=== PATIENT | female | born 1980 | race Caucasian/White ===

== ENCOUNTER → 2020-10-15 | Outpatient (CLI) | payer OTHER ==
[~2020-10-15] MED LIST: CYCL-707 PO; GABA-282 PO; GABA-845 PO; IBUP-1022 PO; IBUPOTC PO; OXYC1TAB23 PO; OXYC5CAP28 PO; PERC5TAB12 PO; SOMA350T PO; TRAM50TA2 PO; [UNRECOGNIZED DRUG - CODE] PO
== END ==
LOC: M LABSMTC 13:48
PROVIDERS: ATTEND Anesthesiology
DX: Z01.812 Encounter for preprocedural laboratory examination (principal)

== ENCOUNTER 2020-10-19 10:14 | Day surgery (SDC) | payer BC ==
[~2020-10-19] VITALS: Ht 177.8 cm; Wt 108.9 kg
[~2020-10-19 10:14] MED LIST changes: +CelecoXIB 400 MG CAP PO ONE; -GABA-845 PO; +GABAPENTIN 400MG CAP PO ONE; +LR 1,000 ML IV ONE; -OXYC1TAB23 PO; -PERC5TAB12 PO; +PERCOCET 5MG/325MG TAB PO ONE; +ceFAZolin SOD 2 GM in IV 1 EA IV ONE
--- OUTSIDE RECORDS SUMMARY | 2020-10-19 10:20 | CCD | Continuity of Care Document ---
Author Author Lacey COHEN PA Organization Unknown Address [address] [place] [address], [address] [address] Phone [phone] Care Team Providers Care School Business Administrator Name Role Phone Remasravanthi Sid ROCK AUTM [phone] Problems Description No Information Available Social History Type Date Description Comments Sex Unknown ETOH Use Occasionally consumes alcohol Tobacco Use Start: Unknown Denies Smoking Allergies, Adverse Reactions, Alerts Description No Known Drug Allergies Medications Active Medications SIG Qnty Indications Ordering Provide r Date Ibuprofen 600mg Tablets 1 tab by mouth three times a day 90tabs M51.26 Erwin Soto MD 10/07/2020 Medrol 4mg TBPK use as dir ected on pkg Unknown Ibuprofen 200 200mg Tablets 1-2 tabs by mouth four times a day Unknown 0 Tylenol 325mg Tablets 2 tabs every 4 hours as needed pain or fever Unknown 00 Tizanidine HCL 4mg Capsules 1 by mouth three times a day Unknown Immunizations Description No Information Available Vital Signs Date Vital Result Comment 10/07/2020 12:52pm Body Temperature 96.9 F Height 71 inches 5'11" Weight 240.00 lb BMI (Body Mass Index) 33.5 kg/m2 Results Description No Information Available Procedures Date Code Description Status 10/07/2020 98418 X-Ray Spine Lumbosacral Complete W/Oblique 4 Views Completed Medical Devices Description No Information Available Encounters Description No Information Available Assessments Date Code Description Provider 10/07/2020 M54.5 Low back pain PRANAV Spicer 10/07/2020 M51.26 Other intervertebral disc displa cement, lumbar region PRANAV Spicer 10/07/2020 M51.36 Other intervertebral disc degene ration, lumbar region PRANAV Spicer Plan of Treatment 10/07/2020 - PRANAV Spicer* M54.5 Low back pain * M51.26 Other intervertebral disc displacement, lumbar region* New Medication: * Ibuprofen 600 mg - 1 tab by mouth three times a day * Follow up:* after with IID for *STAT* L-spine mri results please. * M51.36 Other intervertebral disc degeneration, lumbar region Functional Status Description No Information Available Mental Status Description No Information Available Referrals Description No Information Available
--- OUTSIDE RECORDS SUMMARY | 2020-10-19 10:20 | CCD | Continuity of Care Document ---
Author Author Lacey KAPOOR BOTTLING ROOM WORKER Organization Unknown Address [address] [place] [address] [place] [address] Phone [phone] Problems Description No Information Available Social History Type Date Description Comments Sex Unknown ETOH Use Occasionally consumes alcohol Tobacco Use Start: Unknown The patient has never vaped Tobacco Use Start: Unknown Patient has never smoked Allergies, Adverse Reactions, Alerts Description No Known Drug Allergies Medications Active Medications SIG Qnty Indications Ordering Provide r Date Medrol 4mg TBPK one dose pack as directed for 6 days 21units M54.41 Ramirez Son JR., M.D. 11/2020 Tizanidine HCL 4mg Tablets take 1 tab q6-8 hours as needed 14tabs M54.41 Ramirez Son JR., M.D. 11/2020 Ibuprofen 200 last dose of 600mg at about 6:00am today Unknown Medications Administered in Office Medication SIG Qnty Indications Ordering Provider Date Methylprednisolone Sodium Succinate To 1 25 MG Injection Lulú Kapoor NP 10/03 Immunizations Description No Information Available Vital Signs Date Vital Result Comment 10/03/2020 11:04am BP Systolic 152 mmHg BP Diastolic 100 mmHg Heart Rate 108 /min Respiratory Rate 20 /min O2 % BldC Oximetry 98 % Body Temperature 97.8 F Weight 240.00 lb Height 71 inches 5'11" BMI (Body Mass Index) 33.5 kg/m2 Pain Level 7 Results Description No Information Available Procedures Date Code Description Status 10/03/2020 49124 Therapeutic, Prophylactic Or Gina gnostic Injection Subq/Im Completed Medical Devices Description No Information Available Encounters Type Date Location Provider Dx Diagnosis Office Visit 10/03/2020 9:15a Main Office Lulú Kapoor NP M54. 41 Lumbago with sciatica, right side Assessments Date Code Description Provider 10/03/2020 M54.41 Lumbago with sciatica, right vasquez e Lulú Kapoor NP Plan of Treatment No Information Available Functional Status Description No Information Available Mental Status Description No Information Available Referrals Description No Information Available
--- OUTSIDE RECORDS SUMMARY | 2020-10-19 10:20 | CCD | Continuity of Care Document ---
Author Author Lacey KAPOOR LICENSE REGISTRATION EXAMINER Organization Unknown Address [address] [place] [address] [place] [address] Phone [phone] Problems Description No Information Available Social History [...] 7 Results Description No Information Available Procedures Description No Information Available Medical Devices Description No Information Available Encounters Description No Information Available Assessments Date Code Description Provider 10/03/2020 M54.41 Lumbago with sciatica, right vasquez e Lulú Kapoor NP Plan of Treatment 10/03/2020 - Lulú Kapoor NP* M54.41 Lumbago with sciatica, right side* New Medication:* Medrol 4 mg - one dose pack as directed for 6 days * Tizanidine HCL 4 mg - take 1 tab q6-8 hours as needed * Comments:* wet read xray: pending radiologist [id number] IM Toradol & 125mg IM Solu-Medrol given in office, patient reports ____ reliefRICE, alternate with heatdiscussed red flag sx that warrant re-evaluation or trip to the ERf/u PRN or with PCPpatient v/u & agreeable to plan Functional Status Description No Information Available Mental Status Description No Information Available Referrals Description No Information Available
--- OUTSIDE RECORDS SUMMARY | 2020-10-19 10:20 | CCD ---
Author Author [facility] Organization [facility] Address Unknown Phone Unavailable Care Team Providers Care Fruit Bar Maker Name Role Phone Rondon, Lulú THREAD WEAVER Unavailable Unavailable Rondon, Lulú THREAD WEAVER Unavailable Unavailable Rondon, Lulú THREAD WEAVER Unavailable Unavailable Rondon, Lulú THREAD WEAVER Unavailable Unavailable Rondon, Lulú THREAD WEAVER Unavailable Unavailable Rondon, Lulú THREAD WEAVER Unavailable Unavailable Rondon, Lulú THREAD WEAVER Unavailable Unavailable Rondon, Lulú THREAD WEAVER Unavailable Unavailable Rondon, Lulú THREAD WEAVER Unavailable Unavailable Rondon, Lulú THREAD WEAVER Unavailable Unavailable Rondon, Lulú THREAD WEAVER Unavailable Unavailable Re-disclosure Warning The records that you are about to access may contain information from federally-assisted alcohol or drug abuse programs. If such information is present, then the following federally mandated warning applies: This information has been disclosed to you from records protected by federal confidentiality rules (42 CFR part 2). The federal rules prohibit you from making any further disclosure of this information unless further disclosure is expressly permitted by the written consent of the person to whom it pertains or as otherwise permitted by 42 CFR part 2. A general authorization for the release of medical or other information is NOT sufficient for this purpose. The Federal rules restrict any use of the information to criminally investigate or prosecute any alcohol or drug abuse patient.The records that you are about to access may contain highly sensitive health information, the redisclosure of which is protected by Article 27-F of the [facility] Public Health law. If you continue you may have access to information: Regarding HIV / AIDS; Provided by facilities licensed or operated by the [facility] Office of Mental Health; or Provided by the [facility] Office for People With Developmental Disabilities. If such information is present, then the following [facility] mandated warning applies: This information has been disclosed to you from confidential records which are protected by state law. State law prohibits you from making any further disclosure of this information without the specific written consent of the person to whom it pertains, or as otherwise permitted by law. Any unauthorized further disclosure in violation of state law may result in a fine or fdc sentence or both. A general authorization for the release of medical or other information is NOT sufficient authorization for further disc losure. Family History Family Member Name Family Member Gender Family Member Status Date o f Status Description Data Source(s) Unknown Unknown Problem [facility] ([facility], ) Unknown Unknown Problem [facility] ([facility], ) Unknown Unknown Problem [facility] ([facility], ) Encounters Encounter Providers Location Date Indications Data Source(s ) Outpatient Attender: Lulú crowder 10/03/2020 08:15:00 AM EST [facility] ([facility]) Immunizations Vaccine Date Status Description Data Source(s) INFLUENZA VIRUS VACCINE QUADRIVAL [id number](6 MOS AND UP)/PF 07/02/2020 12:00:00 AM EDT completed [facility] Medications Medication Brand Name Start Date Product Form Dose Route Admi nistrative Instructions Pharmacy Instructions Status Indications Reaction Description Data Source(s) 400 mg 10/16/2020 12:00:00 AM EST capsule 90 TAKE ONE CAPSULE BY MOUTH THREE TIMES A DAY TAKE ONE CAPSULE BY MOUTH THREE TIMES A DAY SOLD: 10/16/2020 [facility] 5-325 mg 10/16/2020 12:00:00 AM EST tablet 12 TAKE ONE TABLET BY MOUTH EVERY 6 HOURS NEEDED FOR PAIN MAXIMUM DAILY DOSE = 4 TABLETS TAKE ONE TABLET BY MOUTH EVERY 6 HOURS NEEDED FOR PAIN MAXIMUM DAILY DOSE = 4 TABLETS SOLD: 10/16/2020 [facility] 100 mg 10/09/2020 12:00:00 AM EST capsule 90 TAKE ONE CAPSULE BY MOUTH THREE TIMES A DAY TAKE ONE CAPSULE BY MOUTH THREE TIMES A DAY SOLD: 10/09/2020 [facility] 300 mg 10/09/2020 12:00:00 AM EST capsule 90 TAKE ONE CAPSULE BY MOUTH AT BEDTIME FOR ONE WEEK, THEN INCREASE TO ONE CAPSULE TWICE DAILY FOR A WEEK, THEN TO ONE CAPSULE THREE TIMES DAILY TAKE ONE CAPSULE BY MOUTH AT BEDTIME FOR ONE WEEK, THEN INCREASE TO ONE CAPSULE TWICE DAILY FOR A WEEK, THEN TO ONE CAPSULE THREE TIMES DAILY SOLD: 10/09/2020 [facility] 50 mg 10/09/2020 12:00:00 AM EST tablet 15 TAKE ONE TABLET BY MOUTH EVERY 4 TO 6 HOURS NEEDED FOR PAIN MAXIMUM DAILY DOSE = 3 TABLETS TAKE ONE TABLET BY MOUTH EVERY 4 TO 6 HOURS NEEDED FOR PAIN MAXIMUM DAILY DOSE = 3 TABLETS SOLD: 10/09/2020 [facility] 600 mg 10/08/2020 12:00:00 AM EST tablet 90 TAKE ONE TABLET BY MOUTH THREE TIMES A DAY TAKE ONE TABLET BY MOUTH THREE TIMES A DAY SOLD: 10/09/2020 [facility] Ibuprofen 600 MG Oral Tablet Ibuprofen 10/07/2020 12:00:00 AM EST ORAL active [facility] ([facility]) 4 mg 10/03/2020 12:00:00 AM EST tablets,dose pack 21 TAKE DIRECTED FOR 6 DAYS TAKE DIRECTED FOR 6 DAYS SOLD: 10/03/2020 [facility] tizanidine 4 MG Oral Tablet TIZANIDINE HCL 10/03/2020 12:00:00 AM EST tablet 14 TAKE ONE TABLET BY MOUTH EVERY 6 TO 8 HOURS NEEDED TAKE ONE TABLET BY MOUTH EVERY 6 TO 8 HOURS NEEDED SOLD: 10/03/2020 [facility] Methylprednisolone Sodium Succinate To 125 MG 10/03/2020 1 2:00:00 AM EST completed [facility] ([facility]) Medication administered onsite tizanidine 4 MG Oral Tablet Tizanidine HCL 10/03/2020 12:00:00 AM EST active [facility] ([facility]) Medrol Medrol 10/03/2020 12:00:00 AM EST active [facility] ([facility]) Insurance Providers Payer name Policy type / Coverage type Policy ID Covered constitution party ID Covered constitution party's relationship to vasquez Policy Vasquez Plan Information [employer] PPO 302/307 [id number] SP [id number] SELF PAY ONLY [id number] SP [id number] [employer] [place] [id number] SP [id number] EXCELLUS BCBS B [id number] S [id number] [employer] [place] O [id number] S [id number] Aetna Commercial Self AETNA U [id number] Self [id number] [employer]ETNA HEALTH SEIU REGGIE O [id number] S [id number] Surgeries/Procedures Procedure Description Date Indications Data Source(s) RADEX SPINE LUMBOSACRAL MINIMUM 4 VIEWS 10/07/2020 12: 00:00 AM EST [facility] ([facility]) Therapeutic, Prophylactic Or Diagnostic Injection Subq/Im 10/03/2020 12:00:00 AM EST [facility] ([facility]) Results ID Date Data Source [id number] 10/15/2020 12:00:00 PM EST [facility] Name Value Range Interpretation Code Description Data Angélica rce(s) Supporting Document(s) SARS coronavirus 2 RNA Not Detected [facility] This lab was ordered by [facility] and reported by [facility]. ID Date Data Source [id number] 10/08/2020 12:00:00 AM EST [facility] Jack Donahue MD Patient Name: MEÑO MALDONADO [facility] Date of : [facility] Date of Exam: 10/08/2020JAKI [facility] [id number]#: Fax: [phone] EXAM: MRI LUMBAR SPINE WITHOUT CONTRASTCLINICAL INFORMATION: Intervertebral disc disease. Low back pain andright leg numbness. History of lumbar spine surgery in 2015.COMPARISON: MRI study 05/25/2015. Comparison radiographs of the lumbarspine are from 05/25/2015.TECHNIQUE:3T multiplanar MRI imaging of the lumbar spine was obtained using varioussequences.MRI FINDINGS:Cortical and medullary bone signal intensity are normal. Vertebral bodyheights are preserved. Alignment is normal. There is no evidence ofspondylolysis or spondylolisthesis. The tip of the conus medullaris isnormal in position and appearance at L1. There are parapelvic cystsaffecting the left kidney, unchanged from prior study. No otherextraspinal abnormality is observed.Axial and sagittal images taken at L1-2, L2-3, and L3-4 are unremar kable.At L4-5, there is mild degenerative disc narrowing and dessication andthere is mild diffuse disc bulging, unchanged from the 2015 prior study.No spinal stenosis or foraminal narrowing is seen at L4-5.At L5-S1, there is a recurrent large right posterior disc herniationproducing thecal sac and significant right S1 nerve root compression. Thedisc protrusion measures 11 mm cpgzy-of-wdzw x 15 mm kkpzffcu-ox-oywmugmjha 11 mm vtypozm-el-whmeim. It is more lateral than the disc herniationwhich was visible to the right of midline on the 2015 prior study. Thereis post laminectomy change associated with surgery for this prior discprotrusion at the L5-S1 level on the right. There is some post laminectomygranulation tissue along the right ventral and right lateral margin of thethecal sac. This granulation tissue is medial and dorsal to the currentdisc herniation. There is facet hypertrophy bilaterally at L5- S1.IMPRESSION:Recurrent large right posterior L5-S1 disc protrusion with thecal sac andright S1 root compression. There is post laminectomy change andgranulation tissue along the right side of the thecal sac at the L5-F2ebugpd to the current disc herniation.Accredited by the [employer] in [place]ilviano Chandler, SATURNINO/Navi osuna for referring MEÑO MALDONADO to our office. Electronically Signed - COBY CHANDLER MD 10/08/20 17:03 Name Value Range Interpretation Code Description Data Angélica rce(s) Supporting Document(s) Procedure Vital Signs ID Date Data Source UNK Name Value Range Interpretation Code Description Data Source(s) Body mass index (BMI) [Ratio] 33.5 kg/m2 33.5 k g/m2 [facility] ([facility]) Body weight 240.00 [lb_av] 240.00 [lb_av] MEDEN T ([facility]) Body height 71 [in_i] 71 [in_i] [facility] ([facility]) 5'11" Body temperature 96.9 [degF] 96.9 [degF] [facility] ([facility]) Body mass index (BMI) [Ratio] 33.5 kg/m2 33.5 k g/m2 [facility] ([facility]) Body height 71 [in_i] 71 [in_i] [facility] ([facility]) 5'11" Body weight 240.00 [lb_av] 240.00 [lb_av] MED[facility] T ([facility]) Body temperature 97.8 [degF] 97.8 [degF] [facility] ([facility]) Oxygen saturation in Arterial blood by Pulse oximetry 98 % 98 % [facility] ([facility]) Respiratory rate 20 /min 20 /min [facility] Heart rate 108 /min 108 /min [facility] ([facility]) Diastolic blood pressure 100 mm[Hg] 100 mm[Hg] [facility] ([facility]) Systolic blood pressure 152 mm[Hg] 152 mm[Hg] [facility])
[2020-10-19] MEDS ORDERED: LIDOCAINE 2% 100MG/5ML SDV (FOR ANES.) As Ordered ONE (10:42)
[2020-10-19] MEDS ORDERED: fentaNYL 100 MCG/2 ML INJECTION (J3010) As Ordered ONE ×2 (10:42→15:10)
[2020-10-19] MEDS ORDERED: propofoL 200 MG/20 ML VIAL As Ordered ONE (10:42)
[2020-10-19] MEDS ORDERED: MIDAZOLAM INJ 2MG/2ML VIAL (J2250 PER 1MG) As Ordered ONE (10:42)
[2020-10-19] MEDS ORDERED: ROCURONIUM BROMIDE 50 MG/5 ML VIAL As Ordered ONE (10:42)
[2020-10-19] MEDS ORDERED: GABA-845 PO (11:13)
[2020-10-19] MEDS ORDERED: OXYC1TAB23 PO (11:13)
[2020-10-19 11:20] LABS: HCG, SERUM QUALITATIVE NEGATIVE (NEGATIVE)
[2020-10-19] MEDS ORDERED: THROMBIN SOLN 20,000 UNITS KIT As Ordered ONE (11:38)
[2020-10-19] MEDS ORDERED: TRANEXAMIC ACID 100 MG/ML 10ML VIAL As Ordered ONE (11:38)
[2020-10-19] MEDS ORDERED: BUPIVACAINE/EPIN 0.25% 30 ML VIAL As Ordered ONE (11:38)
[2020-10-19] MEDS ORDERED: BACITRACIN PWD 50,000 UNITS VIAL As Ordered ONE (11:39)
[2020-10-19] MEDS ORDERED: BUPIVACAINE LIPOSOME/PF 1.3% 20ML VIAL (13.3MG/ML)(EXPAREL)(C9290 PER1MG) As Ordered ONE (11:39)
[2020-10-19] MEDS ORDERED: EPINEPHrine INJ 1 MG/ML 1ML AMP As Ordered ONE (11:39)
[2020-10-19] MEDS ORDERED: BUPIVACAINE HCL 0.5% 10ML VIAL As Ordered ONE (11:39)
[2020-10-19] MEDS ORDERED: ACETAMINOPHEN 1000MG 100ML IV BTL (OFIRMEV) (J0131 PER 10MG) As Ordered ONE (12:33)
[2020-10-19] MEDS ORDERED: dexameTHASONE 4 MG/ML 1ML VIAL (J1100 PER 1MG) As Ordered ONE (12:33)
[2020-10-19] MEDS ORDERED: ONDANSETRON 4MG/2ML VIAL As Ordered ONE ×2 (12:58→15:19)
[2020-10-19] MEDS ORDERED: HYDROmorphone HCL 2 MG/ML 1ML VIAL (J1170) As Ordered ONE (12:58)
[2020-10-19] MEDS ORDERED: METOCLOPRAMIDE INJ 10MG/2ML VIAL (J2765 PER 1) As Ordered ONE (12:58)
--- NOTE | 2020-10-19 13:43 | REP ---
INDICATION: RIGHT L5/S1 UNILATERAL LAMINECTOMY REVISION. COMPARISON: Comparison study May 25, 2015.. TECHNIQUE: A single portably obtained cross-table lateral view of the lumbar spine is presented time stamped 110 p.m.. FINDINGS: Cross-table lateral intra procedural radiograph demonstrates an intraoperative probe at the dorsal aspect of the spinal canal at the L5-S1 disc level. IMPRESSION: Procedural imaging. <Electronically signed by Telly Chandler > 10/19/20 [id number]
[2020-10-19] MEDS ORDERED: SUGAMMADEX SODIUM 500 MG/5 ML VIAL (BRIDION) As Ordered ONE (14:39)
[2020-10-19] MEDS ORDERED: oxyCODONE 5MG TAB As Ordered ONE (15:10)
[2020-10-19] MEDS ORDERED: LR 1,000 ML IV SCH (15:30)
[2020-10-19] MEDS ORDERED: oxyCODONE 5MG TAB PO PRN (15:30)
[2020-10-19] MEDS ORDERED: ONDANSETRON 4MG/2ML VIAL IV PRN (15:30)
[2020-10-19] MEDS ORDERED: METOCLOPRAMIDE INJ 10MG/2ML VIAL (J2765 PER 1) IV PRN (15:30)
[2020-10-19] MEDS ORDERED: MEPERIDINE INJ 25 MG/ML VIAL (J2175) IV PRN (15:30)
[2020-10-19] MEDS ORDERED: fentaNYL 100 MCG/2 ML INJECTION (J3010) IV PRN (15:30)
[2020-10-19] MEDS ORDERED: ACETAMINOPHEN TAB 650MG DOSE (2X325MG) PO PRN (16:00)
[2020-10-19] MEDS ORDERED: PROMETHAZINE INJ 25 MG/ML VIAL (J2550) IV PRN (16:00)
[2020-10-19] MEDS ORDERED: HYDROMORPHONE HCL 0.5 MG/ 0.5 ML SYRINGE (J1170 PER 1) IV PRN ×2 (16:00)
[2020-10-19] MEDS ORDERED: PERCOCET 5MG/325MG TAB PO PRN (16:00)
[2020-10-19] MEDS ORDERED: PROMETHAZINE INJ 25 MG/ML VIAL (J2550) IV SCH (16:00)
[2020-10-19 16:30] VITALS: BP 146/68
--- NOTE | 2020-10-19 16:44 | RO ---
OPERATIVE NOTE DATE OF OPERATION: 10/19/2020 PREOPERATIVE DIAGNOSIS: Intractable discomfort that radiates down the right lower extremity secondary to recurrent disc herniation at L5-S1. POSTOPERATIVE DIAGNOSIS: Intractable discomfort that radiates down the right lower extremity secondary to recurrent disc herniation at L5-S1. PROCEDURE: Re-do microdiscectomy, L5-S1, right modifier 22 appended because the surgery involved extensive dissection through scar tissue and additional time required to do this procedure 100% more than normal. SURGEON: Fidencio Caldera MD EDUCATION DEAN: Higinio Watts PA-C ANESTHESIA: General. ESTIMATED BLOOD LOSS: 40 mL, replaced with crystalloid. COMPLICATIONS: None. INDICATIONS: Intractable discomfort down the right lower extremity. The patient has an MRI that suggests a recurrent disc herniation, L5-S1 on the right side. The patient had a discectomy, decompression years ago with a neurosurgeon who is no longer practicing locally and has elected for operative intervention. The consent was reviewed in detail including a chitra discussion of the pathology involved, the procedure proposed, alternatives including doing nothing, risks including but not limited to pain, failure, incomplete relief, need for additional surgery, nerve injury, CSF leak, other problems. The patient agrees to proceed. DESCRIPTION OF PROCEDURE: Identified in the holding area. The site and side verified. She was brought to the operating room, positioned on the Henry frame for exposure of the lumbar spine. The Henry frame elevated, knees slightly flexed. Once I and the patent litigation associate were comfortable with the positioning, she was then sterilely prepped and draped in the usual fashion. Next, timeout was accomplished. I stood on the patient's right. Mr. Watts stood on the patient's left. The previous incision was outlined with a marking pen, infiltrated with 1/4% Marcaine with epinephrine, made with a 10 blade knife, developed down through skin and subcuticular tissues. I utilized at this stage 3.5 loupe magnification. We opened the posterior lumbar fascia sharply using a 10 blade, dissected along the spinous process of 5, identified the L5 lamina and the L5-S1 facet complex and S1, dissecting through scar tissue and other soft tissues. I drilled the divot in the remaining lamina of 5 and got a cross table lateral x-ray. This verified our level. Next, retractors were installed and at this point, my loupe magnification was removed and the operating microscope was thoroughly draped and brought in. Mr. Watts utilized the oculars on the left. I used the oculars on the right. Next, I further exposed lamina using pituitaries and curettes and then I utilized the high speed bur to implement a right unilateral laminectomy at L5. This extended from the scarred epidural space, the bone tissue superior to that, creating some fresh tissue and extended to the medial aspect of the L5-S1 facet. Some small portion of that was removed approximately 40% inferiorly. We continued inferiorly into the lamina of S1. Next, I utilized Alka curettes to elevate scar tissue and reflect the dura from the lamina. I was able to identify the traversing S1 nerve root after significant dissection. Next, we were able to remove the nerve root with a Santiago-Josiah. We removed disc material from the axillary position as well as the shoulder position using Lu pituitaries. We explored the disc interspace using the Lu pituitaries, removed additional friable material. I probed the neural foramen and was felt to be patent using Santiago-Josiah. Quite a significant amount of disc material was removed. Next, once we were comfortable that a significant amount of disc material which likely amount to the entire extrusion was removed. We irrigated with approximately 180 mL of saline solution, inspected the wound, no bleeding, no CSF leak. We removed retractors, reapproximated the posterior lumbar fascia with interrupted stitch, injected 30 mL of Exparel mixture for perioperative pain management, closed Ricardo's fascia and deep dermis followed by application of Prineo dressing. The patient was then able to be moved to hospital bed, moved to recovery room in good condition. For further details, please refer to medical record. Mr. Watts was present and participated in the entirety of rhe case.
[2020-10-19] MEDS: LR 1,000 ML IV SCH (16:54)
[2020-10-19 17:00] VITALS: BP 136/87
[2020-10-19] MEDS ORDERED: ceFAZolin SOD 2 GM in IV 1 EA IV ONE (18:00)
[2020-10-19 19:00] VITALS: BP 115/65
[2020-10-19 20:00] VITALS: BP 118/69
[2020-10-19] MEDS: PERCOCET 5MG/325MG TAB PO PRN (20:58)
[2020-10-19 21:00] VITALS: BP 120/70
[2020-10-20 02:11] VITALS: BP 119/72
[2020-10-20] MEDS: LR 1,000 ML IV SCH (04:30)
[2020-10-20] MEDS ORDERED: PERC5TAB12 PO (05:57)
[2020-10-20 06:00] VITALS: BP 125/62
[2020-10-20] MEDS: PERCOCET 5MG/325MG TAB PO PRN (07:58)
[2020-10-20] MEDS ORDERED: MIRALAX *UNIT DOSE* 17GM PACKET PO SCH (09:00)
[2020-10-20] MEDS ORDERED: MOM 30ML SUSPENSION UDC PO SCH (09:00)
[2020-10-20 10:00] VITALS: BP 117/73
== END 2020-10-20 10:40 | disposition home or self-care (01) ==
LOC: M SDC 10:14 → M MS5PR 16:25 → M SDC 10-20 10:40
PROVIDERS: ATTEND Orthopaedic Surgery
DX: M51.27 Other intervertebral disc displacement, lumbosacral region (principal); M54.16 Radiculopathy, lumbar region; Z79.899 Other long term (current) drug therapy; M53.3 Sacrococcygeal disorders, not elsewhere classified
CPT/HCPCS: 36415; 63030; 72100; 84703; 86850; 86900; 86901; 88304; 96365; C9290; J0131; J0690; J1100; J1170; J2250; J2405; J2765; J3010

== ENCOUNTER 2020-11-26 09:15 | Outpatient (RCR) | payer BC, MEDICAID ==
[~2020-11-26 09:15] MED LIST changes: -CelecoXIB 400 MG CAP PO ONE; +GABA-845 PO; -GABAPENTIN 400MG CAP PO ONE; -LR 1,000 ML IV ONE; +OXYC1TAB23 PO; +PERC5TAB12 PO; -PERCOCET 5MG/325MG TAB PO ONE; -ceFAZolin SOD 2 GM in IV 1 EA IV ONE
== END 2020-11-29 | disposition home or self-care (01) ==
LOC: M PT 09:15
PROVIDERS: ATTEND Orthopaedic Surgery
DX: M54.16 Radiculopathy, lumbar region (principal)

== ENCOUNTER 2020-12-24 09:15 | Outpatient (RCR) | payer MEDICAID, OTHER | END 2020-12-30 | LOC: M PT 09:15 | PROVIDERS: ATTEND Orthopaedic Surgery | DX: M54.16 Radiculopathy, lumbar region (principal) ==

== ENCOUNTER → 2021-04-23 | Outpatient (CLI) | payer OTHER ==
[~2021-04-23] MED LIST changes: +GABA-283 PO; -GABA-845 PO; +PROHANCE 279.3MG/ML 15ML VIAL ONE
--- NOTE | 2021-04-24 00:41 | REPVR ---
PROCEDURE INFORMATION: Exam: MR Lumbar Spine Without and With Contrast Exam date and time: 04/23/2021 9:11 AM Age: 41 years old Clinical indication: Low back pain; Prior surgery; Surgery date: 1-6 months; Surgery type: Surgery 10/2020; Additional info: Lbp TECHNIQUE: Imaging protocol: Multiplanar magnetic resonance images of the lumbar spine without and with intravenous contrast. Contrast material: PROHANCE; Contrast volume: 22 ml; Contrast route: INTRAVENOUS (IV); COMPARISON: MRI-Spine, L.S. without con 05/25/2015 1:22 PM FINDINGS: Postoperative changes compatible with right L5-S1 hemilaminectomy. There is been interval resection of the inferiorly oriented disc extrusion at L5-S1, however there is persistent overall broad-based disc bulge with right paracentral component. There is asymmetric enlarged right S1 nerve root dorsal root ganglion within the right L5-S1 neural foramen. Lumbar vertebral body heights are maintained. No abnormal marrow signal. No cord compression. No abnormal cord signal. Conus medullaris terminates at the L1 level. L1-L2: No significant areas of canal or foraminal narrowing. L2-L3: No significant areas of canal or foraminal narrowing. L3-L4: No significant areas of canal or foraminal narrowing. L4-L5: No significant areas of canal or foraminal narrowing. L5-S1: Status post right hemilaminectomy. Interval resection of inferiorly oriented disc extrusion. With overall much improved spinal canal patency. Persistent broad-based disc bulge and right foraminal disc extrusion contributing to moderate right foraminal narrowing. Mild left foraminal narrowing. IMPRESSION: 1. Postoperative changes compatible with right L5-S1 hemilaminectomy with overall improved spinal canal patency at the L5 level when compared with prior MRI. 2. Asymmetric enlarged right S1 nerve root dorsal root ganglion within the right L5-S1 neural foramen, possibly inflammatory in the setting of postoperative change. Continued interval follow-up at the discretion of neurosurgery. Electronically signed by: Lucius Ahumada On 04/24/2021 00:40:19 AM
== END ==
LOC: M PLAIMG 07:52
PROVIDERS: ATTEND Physician Assistant
DX: M54.5 Low back pain (principal)
CPT/HCPCS: 72158; A9576

== ENCOUNTER → 2021-07-14 | Outpatient (CLI) | payer OTHER ==
[~2021-07-14] MED LIST changes: -PROHANCE 279.3MG/ML 15ML VIAL ONE
[2021-07-14 14:01] LABS: PLATELET COUNT, AUTOMATED 373 10^3/uL (150-450)
[2021-07-14 14:16] LABS: INR 0.91; PROTHROMBIN TIME 12.6 SECONDS (12.7-14.5)
[2021-07-14 14:17] LABS: PARTIAL THROMBOPLASTIN TIME 31.7 SECONDS (25.9-37.0)
== END ==
LOC: M PLALAB 09:24
PROVIDERS: ATTEND Physician Assistant
DX: M51.17 Intervertebral disc disorders with radiculopathy, lumbosacral region (principal)

== ENCOUNTER 2022-09-28 08:35 | Outpatient (RCR) | payer OTHER | END 2022-10-01 | LOC: M PT 08:35 | PROVIDERS: ATTEND Physician Assistant | DX: M25.521 Pain in right elbow (principal) ==

== ENCOUNTER → 2022-09-28 | Outpatient (CLI) | payer OTHER ==
[~2022-09-28] MED LIST changes: +[UNRECOGNIZED DRUG - CODE] PO; -[UNRECOGNIZED DRUG - CODE] PO
[2022-09-28 15:17] LABS: BASO # 0.1 10^3/uL (0.0-0.2); BASO % 0.4 % (0.0-1.0); EOS # 0.2 10^3/uL (0.0-0.5); HEMATOCRIT 42.8 % (36.0-47.0); HEMOGLOBIN 13.9 g/dl (12.0-15.5); LYMPH # 2.6 10^3/uL (1.5-5.0); LYMPH % 21.8 % (24.0-44.0); MEAN CORPUSCULAR HEMOGLOBIN 29.9 pg (27.0-33.0); MEAN CORPUSCULAR HGB CONC 32.5 g/dl (32.0-36.5); MONO # 0.8 10^3/uL (0.0-0.8); MONO % 6.3 % (2.0-8.0); NEUTROPHILS # 8.3 10^3/uL (1.5-8.5); PLATELET COUNT, AUTOMATED 335 10^3/uL (150-450); RED BLOOD COUNT 4.65 10^6/uL (4.00-5.40)
[2022-09-28 15:43] LABS: ALBUMIN 3.4 G/DL (3.2-5.2); ALKALINE PHOSPHATASE 47 U/L (46-116); ALT/SGPT 28 U/L (7.0-40); AST/SGOT 18 U/L (<34); BILIRUBIN,TOTAL 0.2 MG/DL (0.3-1.2); BLOOD UREA NITROGEN 14 MG/DL (9-23); CALCIUM LEVEL 8.7 MG/DL (8.5-10.1); CARBON DIOXIDE LEVEL 23 MMOL/L (20-31); CHLORIDE LEVEL 109 MMOL/L (98-107); CHOLESTEROL LEVEL 186 MG/DL (<200); CREATININE FOR GFR 0.73 MG/DL (0.55-1.30); GLOMERULAR FILTRATION RATE > 60.0 (>58); GLUCOSE, FASTING 98 MG/DL (60-100); HDL CHOLESTEROL 42.2 MG/DL (>40); LDL CHOLESTEROL 101.2 MG/DL (<100); NON-HDL-C 144 MG/DL; POTASSIUM SERUM 4.1 MMOL/L (3.5-5.1); SODIUM LEVEL 141 MMOL/L (136-145); TOTAL PROTEIN 6.6 G/DL (5.7-8.2); TRIGLYCERIDES LEVEL 213 MG/DL (<150)
[2022-09-28 15:48] LABS: HEMOGLOBIN A1c 5.7 % (4.0-6.0)
== END ==
LOC: M PLALAB 13:41
PROVIDERS: ATTEND Physician Assistant
DX: Z00.00 Encounter for general adult medical examination without abnormal findings (principal); Z83.49 Family history of other endocrine, nutritional and metabolic diseases; E66.3 Overweight

== ENCOUNTER → 2022-11-01 | Outpatient (RCR) | payer OTHER | LOC: M PT 10-18 08:32 | PROVIDERS: ATTEND Physician Assistant | DX: M25.521 Pain in right elbow (principal) ==

== ENCOUNTER 2022-11-21 09:30 | Outpatient (RCR) | payer OTHER | END 2022-11-29 | LOC: M PT 09:30 | PROVIDERS: ATTEND Physician Assistant | DX: M25.521 Pain in right elbow (principal) ==

== ENCOUNTER → 2023-02-01 | Outpatient (REF) | LOC: M PLAIMG 14:25 | PROVIDERS: ATTEND Internal Medicine | DX: Z11.52 Encounter for screening for COVID-19 (principal) ==

== ENCOUNTER → 2023-04-05 | Outpatient (CLI) | payer OTHER ==
[2023-04-07 15:08] LABS: IgG P18 AB Absent (.); IgG P23 AB Absent (.); IgG P28 AB Absent (.); IgG P30 AB Absent (.); IgG P39 AB Absent (.); IgG P41 AB Absent (.); IgG P45 AB Absent (.); IgG P66 AB Absent (.); IgG P93 AB Absent (.); IgM P23 AB Absent (.); IgM P39 AB Absent (.); IgM P41 AB Absent (.); LYME IgG WB INTERPRETATION Negative (.); LYME IgM WB INTERPRETATION Negative (.)
== END ==
LOC: M WUC 15:18
PROVIDERS: ATTEND Student in an Organized Health Care Education/Training Program
DX: R53.83 Other fatigue (principal)

== ENCOUNTER → 2023-05-29 | Outpatient (REF) | payer OTHER ==
[~2023-05-29] MED LIST changes: -GABA-283 PO; +GABA-284 PO
== END ==
LOC: M SFHCWAGY 17:33
PROVIDERS: ATTEND Nurse Practitioner Family
DX: Z12.4 Encounter for screening for malignant neoplasm of cervix (principal)

== ENCOUNTER → 2023-05-29 | Outpatient (CLI) | payer OTHER | LOC: M WHC 14:57 | PROVIDERS: ATTEND Nurse Practitioner Family | DX: Z12.31 Encounter for screening mammogram for malignant neoplasm of breast (principal); Z80.3 Family history of malignant neoplasm of breast ==

== ENCOUNTER → 2023-08-01 | Outpatient (CLI) | payer OTHER | LOC: M WHC 09:10 | PROVIDERS: ATTEND Nurse Practitioner Family | DX: Z12.31 Encounter for screening mammogram for malignant neoplasm of breast (principal) ==

== ENCOUNTER → 2023-08-31 | Outpatient (CLI) | payer OTHER ==
[~2023-08-31] MED LIST changes: +XALA0.007 OP
[2023-08-31 08:35] VITALS: TEMP 98.6
[2023-08-31 09:21] VITALS: BP 132/84; O2SAT 98
== END ==
LOC: M WHCPRO 07:10
PROVIDERS: ATTEND Nurse Practitioner Family
DX: R92.8 Other abnormal and inconclusive findings on diagnostic imaging of breast (principal); N63.11 Unspecified lump in the right breast, upper outer quadrant

== ENCOUNTER → 2023-09-29 | Outpatient (CLI) | payer OTHER ==
[2023-09-29 13:27] LABS: BASO # 0.1 10^3/uL (0.0-0.2); BASO % 0.6 % (0.0-1.0); EOS # 0.1 10^3/uL (0.0-0.5); EOS % 0.8 % (0.0-3.0); HEMATOCRIT 46.8 % (36.0-47.0); HEMOGLOBIN 15.6 g/dl (12.0-15.5); LYMPH # 2.3 10^3/uL (1.5-5.0); LYMPH % 22.2 % (24.0-44.0); MEAN CORPUSCULAR HEMOGLOBIN 30.6 pg (27.0-33.0); MEAN CORPUSCULAR HGB CONC 33.3 g/dl (32.0-36.5); MEAN CORPUSCULAR VOLUME 91.8 fl (80.0-96.0); MONO # 0.7 10^3/uL (0.0-0.8); MONO % 6.7 % (2.0-8.0); NEUTROPHILS # 7.2 10^3/uL (1.5-8.5); NEUTROPHILS % 69.4 % (36.0-66.0); PLATELET COUNT, AUTOMATED 330 10^3/uL (150-450); WHITE BLOOD COUNT 10.4 10^3/uL (4.0-10.0)
[2023-09-29 13:55] LABS: RHEUMATOID FACTOR QUANT < 3.5 IU/ML (<14)
[2023-09-29 13:56] LABS: HEMOGLOBIN A1c 5.8 % (4.0-6.0)
[2023-09-29 13:59] LABS: ALBUMIN 4.1 G/DL (3.2-5.2); ALKALINE PHOSPHATASE 45 U/L (46-116); ALT/SGPT 61 U/L (7.0-40); AST/SGOT 32 U/L (<34); BILIRUBIN,TOTAL 0.6 MG/DL (0.3-1.2); BLOOD UREA NITROGEN 8 MG/DL (9-23); CALCIUM LEVEL 9.4 MG/DL (8.5-10.1); CARBON DIOXIDE LEVEL 23 MMOL/L (20-31); CHLORIDE LEVEL 106 MMOL/L (98-107); CHOLESTEROL LEVEL 229 MG/DL (<200); CHOLESTEROL RISK RATIO 3.69 (<5); CREATININE FOR GFR 0.83 MG/DL (0.55-1.30); FREE T4 1.38 NG/DL (0.89-1.76); GLOMERULAR FILTRATION RATE > 60.0 (>58); GLUCOSE, FASTING 116 MG/DL (60-100); HDL CHOLESTEROL 61.9 MG/DL (>40); LDL CHOLESTEROL 140.7 MG/DL (<100); NON-HDL-C 167.1 MG/DL; POTASSIUM SERUM 4.2 MMOL/L (3.5-5.1); SODIUM LEVEL 139 MMOL/L (136-145); TOTAL PROTEIN 7.7 G/DL (5.7-8.2); TRIGLYCERIDES LEVEL 132 MG/DL (<150)
== END ==
LOC: M PLALAB 09:42
PROVIDERS: ATTEND Physician Assistant
DX: Z00.00 Encounter for general adult medical examination without abnormal findings (principal); Z68.33 Body mass index [BMI] 33.0-33.9, adult; Z13.29 Encounter for screening for other suspected endocrine disorder; M79.89 Other specified soft tissue disorders

== ENCOUNTER → 2024-02-29 | Outpatient (CLI) | payer OTHER | LOC: M WHC 08:56 | PROVIDERS: ATTEND Nurse Practitioner Family | DX: R92.8 Other abnormal and inconclusive findings on diagnostic imaging of breast (principal) ==

== ENCOUNTER → 2024-09-17 | Outpatient (CLI) | payer OTHER ==
[~2024-09-17] MED LIST changes: +GABA-1172 PO; -GABA-282 PO
== END ==
LOC: M WHC 08:29
PROVIDERS: ATTEND Nurse Practitioner Family
DX: Z12.31 Encounter for screening mammogram for malignant neoplasm of breast (principal); R92.323 Mammographic fibroglandular density, bilateral breasts

== ENCOUNTER → 2024-10-07 | Outpatient (CLI) | payer OTHER ==
[2024-10-07 15:29] LABS: HEMATOCRIT 45.5 % (36.0-47.0); MEAN CORPUSCULAR HEMOGLOBIN 30.9 pg (27.0-33.0); MEAN CORPUSCULAR VOLUME 93.6 fl (80.0-96.0); PLATELET COUNT, AUTOMATED 323 10^3/uL (150-450); RED BLOOD COUNT 4.86 10^6/uL (4.00-5.40); WHITE BLOOD COUNT 10.2 10^3/uL (4.0-10.0)
[2024-10-07 15:57] LABS: CHOLESTEROL RISK RATIO 4.3 (<5); HDL CHOLESTEROL 50.6 MG/DL (>40); LDL CHOLESTEROL 127.8 MG/DL (<100); NON-HDL-C 167.4 MG/DL
[2024-10-07 16:01] LABS: FREE T4 1.04 NG/DL (0.89-1.76); THYROID STIMULATING HORMONE 1.727 uIU/ML (0.55-4.78)
[2024-10-07 16:03] LABS: HEMOGLOBIN A1c 5.9 % (4.0-6.0)
== END ==
LOC: M PLALAB 10:06
PROVIDERS: ATTEND Nurse Practitioner Family
DX: R73.03 Prediabetes (principal); Z13.220 Encounter for screening for lipoid disorders

== ENCOUNTER → 2025-07-16 | Outpatient (CLI) | payer BC ==
[~2025-07-16] MED LIST changes: -IBUP-1022 PO; +IBUP600T42 PO
[2025-07-16 10:52] LABS: PLATELET COUNT, AUTOMATED 271 10^3/uL (150-450)
[2025-07-16 11:19] LABS: CHOLESTEROL LEVEL 210.0 MG/DL (<200); CHOLESTEROL RISK RATIO 3.57 (<5); LDL CHOLESTEROL 126.8 MG/DL (<100); NON-HDL-C 151.2 MG/DL; TRIGLYCERIDES LEVEL 122.0 MG/DL (<150)
[2025-07-16 11:22] LABS: ESTIMATED AVERAGE GLUCOSE 131.0 MG/DL (60-110)
[2025-07-16 11:25] LABS: FREE T4 1.16 NG/DL (0.89-1.76)
== END ==
LOC: M PLALAB 09:06
PROVIDERS: ATTEND Nurse Practitioner Family
DX: R73.03 Prediabetes (principal); Z13.29 Encounter for screening for other suspected endocrine disorder; Z13.220 Encounter for screening for lipoid disorders